=== PATIENT | female | born 1990 | race Two or more races ===

== ENCOUNTER 2020-09-24 09:50 | Emergency (ER) | payer OTHER ==
[2020-09-24 10:07] VITALS: BP 111/73; PULSE 88; TEMP 98.4; BMI 25.4
[2020-09-24 11:33] LABS: EPI CELLS >36 /uL (0-25.1); HYALINE CASTS 2 /uL (0-3.1); PH,URINE 5.5 (5.0-8.0); URINE APPEARANCE CLEAR; URINE BACTERIA 864 /uL (0-1359); URINE BILIRUBIN NEGATIVE (NEGATIVE); URINE COLOR YELLOW; URINE GLUCOSE (UA) NEGATIVE (NEGATIVE); URINE KETONE TRACE (NEGATIVE); URINE LEUK ESTERASE 1+ (NEGATIVE); URINE NITRITE NEGATIVE (NEGATIVE); URINE PROTEIN NEGATIVE (NEGATIVE); URINE RBC 11 /uL (0-23.9); URINE WBC 33 /uL (0-25.8)
== END 2020-09-24 12:52 | disposition home or self-care (01) ==
LOC: JER 09:50
DX: O20.0 Threatened abortion (principal)
CPT/HCPCS: 36415; 76817-TC; 81003; 84702; 86850; 86900; 86901; 87086; 99284-25

== ENCOUNTER 2020-10-01 06:58 | Emergency (ER) | payer OTHER ==
[2020-10-01 07:16] VITALS: BP 115/73; PULSE 90; TEMP 98.1; BMI 25.0
[2020-10-01] MEDS ORDERED: ACETAMINOPHEN 500 MG TABLET (FP) PO ONE (07:41)
[2020-10-01] MEDS ORDERED: ACETAMINOPHEN 325 MG TABLET (FP) ONE (08:45)
[2020-10-01 09:23] LABS: EPI CELLS >36 /uL (0-25.1); HYALINE CASTS 5 /uL (0-3.1); PH,URINE 5.5 (5.0-8.0); URINE APPEARANCE CLEAR; URINE BACTERIA 1787 /uL (0-1359); URINE BILIRUBIN NEGATIVE (NEGATIVE); URINE COLOR YELLOW; URINE GLUCOSE (UA) NEGATIVE (NEGATIVE); URINE KETONE NEGATIVE (NEGATIVE); URINE LEUK ESTERASE TRACE (NEGATIVE); URINE NITRITE NEGATIVE (NEGATIVE); URINE PROTEIN NEGATIVE (NEGATIVE); URINE RBC 8 /uL (0-23.9); URINE WBC 77 /uL (0-25.8)
[2020-10-01 10:01] LABS: BASO % 0.5 % (0-2.0); EOS % 2.8 % (0-4.5); HEMATOCRIT 39.9 % (32.4-45.2); HEMOGLOBIN 13.4 GM/dL (10.7-15.3); LYMPH % 27.2 % (8-40); MCH 28.9 pg (25.7-33.7); MCHC 33.5 g/dl (32.0-36.0); MEAN CELL VOLUME 86.3 fl (80-96); MEAN PLT VOLUME 7.3 fl (7.5-11.1); MONO % 6.5 % (3.8-10.2); PLATELET COUNT 324 10^3/uL (134-434); RBC 4.62 M/mm3 (3.60-5.2); RDW 15.6 % (11.6-15.6); WHITE BLOOD COUNT 8.6 K/mm3 (4.0-10.0)
== END 2020-10-01 11:39 | disposition home or self-care (01) ==
LOC: JER 06:58
DX: N30.00 Acute cystitis without hematuria (principal); Z3A.01 Less than 8 weeks gestation of pregnancy
CPT/HCPCS: 36415; 76817-TC; 81003; 84702; 85025; 87086; 87186; 87880; 99284-25

== ENCOUNTER 2021-05-26 02:15 | Inpatient (IN) | payer OTHER ==
[2021-05-26] MEDS ORDERED: AMPICILLIN - 2 GM in SODIUM CHLORIDE 100 ML IVPB ONE (04:00)
[2021-05-26] MEDS: ELECTROLYTE-148 SOLN 1,000 ML IV SCH ×3 (04:15→18:22)
[2021-05-26] MEDS ORDERED: AMPICILLIN SODIUM 2 GM VIAL ONE (04:17)
[2021-05-26 04:48] LABS: BASO % 0.2 % (0-2.0); EOS % 1.9 % (0-4.5); HEMATOCRIT 38.4 % (32.4-45.2); HEMOGLOBIN 13.1 GM/dL (10.7-15.3); LYMPH % 24.4 % (8-40); MCH 30.2 pg (25.7-33.7); MCHC 34.2 g/dl (32.0-36.0); MEAN CELL VOLUME 88.4 fl (80-96); MEAN PLT VOLUME 7.4 fl (7.5-11.1); MONO % 6.3 % (3.8-10.2); NEUT % 67.2 % (42.8-82.8); PLATELET COUNT 240 10^3/uL (134-434); RBC 4.34 M/mm3 (3.60-5.2); RDW 13.4 % (11.6-15.6); WHITE BLOOD COUNT 10.2 K/mm3 (4.0-10.0)
[2021-05-26 05:01] LABS: INR 0.91 (0.83-1.09); PROTHROMBIN TIME (PATIENT) 10.5 SEC (9.7-13.0)
[2021-05-26 05:03] LABS: ACTIVATED PTT 28.3 SECONDS (25.2-36.5)
[2021-05-26 05:06] VITALS: BMI 29.1
[2021-05-26 05:06] LABS: CALCIUM 8.7 mg/dL (8.5-10.1)
[2021-05-26 05:07] LABS: ALBUMIN 2.9 g/dl (3.4-5.0); BLOOD UREA NITROGEN 7.8 mg/dL (7-18)
[2021-05-26 05:10] LABS: CREATININE 0.6 mg/dL (0.55-1.3)
[2021-05-26 05:11] LABS: TOT PROT 7.1 g/dl (6.4-8.2)
[2021-05-26 05:12] LABS: BILIRUBIN,TOTAL 0.2 mg/dL (0.2-1)
[2021-05-26 05:36] LABS: SYPHILIS W/ RPR CONF NON-REACTIVE (NONREACTIVE)
[2021-05-26 06:05] LABS: HIV INTERPRETATION NEGATIVE (NEGATIVE)
[2021-05-26] MEDS ORDERED: BUTORPHANOL TARTRATE 1 MG/ML VIAL IVPB PRN (07:49)
[2021-05-26] MEDS ORDERED: DINOPROSTONE 10 MG VAGINAL SUPPOSITORY VG ONE (07:51)
[2021-05-26] MEDS ORDERED: ELECTROLYTE-148 SOLN 1,000 ML IV SCH (08:00)
[2021-05-26] MEDS ORDERED: AMPICILLIN SODIUM 1 GM VIAL ONE ×5 (08:10→23:58)
[2021-05-26] MEDS ORDERED: SODIUM CHLORIDE 100 ML IVPB ONE ×3 (08:11→14:52)
[2021-05-26] MEDS: AMPICILLIN - 1 GM in SODIUM CHLORIDE 100 ML IVPB SCH ×4 (08:16→20:00)
[2021-05-26] MEDS ORDERED: PROMETHAZINE HCL 25 MG/1 ML VIAL IVPUSH ONE (14:13)
[2021-05-26] MEDS ORDERED: OXYTOCIN 30 UNITS in 0.9% NS 30 UNIT/500 ML INFUS.BAG IVPB ONE (20:23)
[2021-05-26] MEDS: OXYTOCIN 30 UNITS in 0.9% NS 30 UNIT/500 ML INFUS.BAG IVPB SCH (20:30)
[2021-05-27] MEDS ORDERED: AMPICILLIN SODIUM 1 GM VIAL ONE ×3 (03:51→20:28)
[2021-05-27] MEDS: AMPICILLIN - 1 GM in SODIUM CHLORIDE 100 ML IVPB SCH ×4 (04:00→20:25)
[2021-05-27] MEDS ORDERED: BUTORPHANOL TARTRATE 2 MG/ML VIAL ONE (05:51)
[2021-05-27] MEDS ORDERED: PROMETHAZINE HCL 25 MG/1 ML VIAL ONE (05:51)
[2021-05-27] MEDS ORDERED: OXYTOCIN 30 UNITS in 0.9% NS 30 UNIT/500 ML INFUS.BAG IVPB ONE (10:02)
[2021-05-27] MEDS: OXYTOCIN 30 UNITS in 0.9% NS 30 UNIT/500 ML INFUS.BAG IVPB SCH (10:50)
[2021-05-27] MEDS: ELECTROLYTE-148 SOLN 1,000 ML IV SCH (12:21)
[2021-05-27] MEDS ORDERED: FENTANYL/BUPIVACAINE/NS/PF - PCEA - 50 ML DISP.SYRIN EP ONE (19:25)
[2021-05-27] MEDS ORDERED: BUPIVACAINE HCL/PF 0.25% (2.5MG/ML) 10 ML VIAL ONE (20:47)
[2021-05-27] MEDS ORDERED: LIDOCAINE HCL 1% PRESERVATIVE FREE - 30ML VIAL ONE (20:54)
[2021-05-27] MEDS: FENTANYL/BUPIVACAINE/NS/PF - PCEA - 50 ML DISP.SYRIN EP SCH (21:25)
[2021-05-27] MEDS ORDERED: NALOXONE HCL 0.4 MG/ML VIAL IVPUSH PRN (21:29)
[2021-05-28] MEDS ORDERED: OXYTOCIN 20 UNITS in 0.9% NS 20 UNIT/1,000 ML INFUS.BAG IV ONE (00:17)
[2021-05-28] MEDS ORDERED: METHYLERGONOVINE MALEATE 0.2 MG/1 ML AMP IM PRN (00:21)
[2021-05-28] MEDS ORDERED: BENZOCAINE 28 GM HEMORRHOIDAL OINTMENT TP PRN (00:21)
[2021-05-28] MEDS ORDERED: oxyCODONE HCL 5 MG TABLET PO PRN (00:21)
[2021-05-28] MEDS ORDERED: WITCH HAZEL 50% (TUCKS) 40 PAD/JAR PAD TP PRN (00:21)
[2021-05-28] MEDS ORDERED: BISACODYL 10 MG SUPP.RECT RC PRN (00:21)
[2021-05-28] MEDS ORDERED: ACETAMINOPHEN 325 MG TABLET (FP) PO PRN (00:21)
[2021-05-28] MEDS ORDERED: BENZOCAINE 20% 57 GM BOTTLE TP PRN (00:21)
[2021-05-28] MEDS ORDERED: OXYTOCIN 20 UNITS in 0.9% NS 20 UNIT/1,000 ML INFUS.BAG IV SCH (00:30)
[2021-05-28 01:46] LABS: CORD BASE EXCESS -0.4 mmol/L (0-2); CORD HCO3 24.3 mmHg (20-29); CORD PCO2 40.2 mmHg (30-78); CORD pH 7.399 (7.14-7.44)
[2021-05-28] MEDS: AMPICILLIN - 1 GM in SODIUM CHLORIDE 100 ML IVPB SCH (04:04)
[2021-05-28] MEDS: FERROUS SO4 325 MG TABLET (FP) PO SCH ×3 (08:21→17:28)
[2021-05-28] MEDS: IBUPROFEN 600 MG TABLET (FP) PO PRN ×2 (08:21→17:28)
[2021-05-28] MEDS: PRENATAL VITAMINS W/ FOLIC ACID TABLET (FP) PO SCH (09:07)
[2021-05-28] MEDS: FENTANYL/BUPIVACAINE/NS/PF - PCEA - 50 ML DISP.SYRIN EP SCH (22:41)
[2021-05-29 09:46] LABS: BASO % 0.4 % (0-2.0); HEMOGLOBIN 12.4 GM/dL (10.7-15.3); LYMPH % 25.2 % (8-40); MCH 29.7 pg (25.7-33.7); MCHC 33.4 g/dl (32.0-36.0); MEAN CELL VOLUME 89.1 fl (80-96); MEAN PLT VOLUME 7.6 fl (7.5-11.1); MONO % 4.8 % (3.8-10.2); NEUT % 67.6 % (42.8-82.8); PLATELET COUNT 246 10^3/uL (134-434); RBC 4.16 M/mm3 (3.60-5.2); RDW 14.2 % (11.6-15.6); WHITE BLOOD COUNT 9.2 K/mm3 (4.0-10.0)
[2021-05-29] MEDS: FERROUS SO4 325 MG TABLET (FP) PO SCH ×3 (09:48→17:10)
[2021-05-29] MEDS: PRENATAL VITAMINS W/ FOLIC ACID TABLET (FP) PO SCH (09:48)
[2021-05-29] MEDS: IBUPROFEN 600 MG TABLET (FP) PO PRN (17:09)
[2021-05-29] MEDS ORDERED: SENNOSIDES/DOCUSATE COMBO (SENNA PLUS) TABLET (UD) PO PRN (22:00)
[2021-05-29] MEDS: FENTANYL/BUPIVACAINE/NS/PF - PCEA - 50 ML DISP.SYRIN EP SCH (22:51)
[2021-05-30] MEDS: IBUPROFEN 600 MG TABLET (FP) PO PRN ×2 (04:21→09:49)
[2021-05-30] MEDS: PRENATAL VITAMINS W/ FOLIC ACID TABLET (FP) PO SCH (09:49)
[2021-05-30] MEDS: FERROUS SO4 325 MG TABLET (FP) PO SCH ×2 (09:50→13:47)
[2021-05-30 11:16] VITALS: BP 105/75; PULSE 75; TEMP 97.8
== END 2021-05-30 14:40 | disposition home or self-care (01) | DRG 560 ==
LOC: JDEL 02:15 → JLDR 03:50 → J3W 05-28 03:05
PROVIDERS: ADMIT Obstetrics & Gynecology; ATTEND Obstetrics & Gynecology
PROC: 3E0P7VZ Introduction of Hormone into Female Reproductive, Via Natural or Artificial Opening (ICD-10-PCS; 2021-05-26)
PROC: 10E0XZZ Delivery of Products of Conception, External Approach (ICD-10-PCS; principal; 2021-05-28)
DX: O41.93X1 Disorder of amniotic fluid and membranes, unspecified, third trimester, fetus 1 (principal); O69.81X0 Labor and delivery complicated by cord around neck, without compression, not applicable or unspecified; Z3A.38 38 weeks gestation of pregnancy; Z37.0 Single live birth
CPT/HCPCS: 36415; 36600; 59409; 80053; 82803; 85025; 85610; 85730; 86762; 86780; 86850; 86900; 86901; 87340; 87389; C9803; U0003; U0005

== ENCOUNTER 2023-03-03 11:47 | Emergency (ER) | payer OTHER ==
[2023-03-03 12:34] VITALS: BP 120/70; PULSE 70; RESP 18; TEMP 97.8; BMI 25.0
== END 2023-03-03 13:43 | disposition home or self-care (01) ==
LOC: JERFT 11:47 → JER 11:47 → JERFT 13:43
DX: Z20.818 Contact with and (suspected) exposure to other bacterial communicable diseases (principal); Z00.00 Encounter for general adult medical examination without abnormal findings
CPT/HCPCS: 99281-25

== ENCOUNTER 2024-01-14 13:07 | Emergency (ER) | payer OTHER ==
[2024-01-14 13:18] VITALS: BP 115/73; PULSE 80; RESP 18; TEMP 97.7; BMI 25.0
[2024-01-14] MEDS ORDERED: FAMOTIDINE 20 MG/50 ML IVPB 20 MG/50 ML MG IVPB ONE (14:36)
[2024-01-14] MEDS ORDERED: MAG HYDROX/AL HYDROX/SIMETH 30 ML UNIT-DOSE CUP ONE (14:36)
[2024-01-14] MEDS ORDERED: ACETAMINOPHEN INJECTION 100 ML ONE (14:36)
[2024-01-14] MEDS: FAMOTIDINE 20 MG/50 ML IVPB 20 MG/50 ML MG IVPB ONE (14:45)
[2024-01-14] MEDS: MAG HYDROX/AL HYDROX/SIMETH 30 ML UNIT-DOSE CUP PO ONE (14:45)
[2024-01-14] MEDS: ACETAMINOPHEN 1000 MG/100 ML BAG IVPB ONE (14:45)
[2024-01-14 15:04] LABS: BASO % 0.5 % (0-2.0); EOS % 5.1 % (0-4.5); HEMATOCRIT 37.5 % (32.4-45.2); HEMOGLOBIN 12.4 GM/dL (10.7-15.3); LYMPH % 41.3 % (8-40); MCH 28.5 pg (25.7-33.7); MCHC 33.1 g/dl (32.0-36.0); MONO % 6.3 % (3.8-10.2); NEUT % 46.8 % (42.8-82.8); PLATELET COUNT 302 10^3/uL (134-434); RBC 4.37 M/mm3 (3.60-5.2); RDW 14.1 % (11.6-15.6); WHITE BLOOD COUNT 6.7 K/mm3 (4.0-10.0)
[2024-01-14 15:07] LABS: EPI CELLS >36 /uL (0-25.1); HCG,QUALITATIVE URINE Negative; HYALINE CASTS 1 /uL (0-3.1); URINE APPEARANCE CLOUDY; URINE BACTERIA 1824 /uL (0-1359); URINE BILIRUBIN NEGATIVE (NEGATIVE); URINE COLOR YELLOW; URINE GLUCOSE (UA) NEGATIVE (NEGATIVE); URINE KETONE TRACE (NEGATIVE); URINE LEUK ESTERASE 2+ (NEGATIVE); URINE NITRITE NEGATIVE (NEGATIVE); URINE PROTEIN NEGATIVE (NEGATIVE); URINE RBC 36 /uL (0-23.9); URINE WBC 145 /uL (0-25.8)
[2024-01-14 15:47] LABS: POTASSIUM 4.1 mmol/L (3.5-5.1)
[2024-01-14 15:49] LABS: ALBUMIN 3.5 g/dl (3.4-5.0); BLOOD UREA NITROGEN 18.2 mg/dL (7-18); CALCIUM 8.9 mg/dL (8.5-10.1)
[2024-01-14 15:52] LABS: CREATININE 0.8 mg/dL (0.55-1.3)
[2024-01-14 15:54] LABS: BILIRUBIN,TOTAL 0.3 mg/dL (0.2-1); TOT PROT 7.3 g/dl (6.4-8.2)
[2024-01-14] MEDS ORDERED: SULFAMETHOXAZOLE/TRIMETHOPRIM 800MG/160MG D.S. TABLET ONE (16:00)
[2024-01-14] MEDS: SULFAMETHOXAZOLE/TRIMETHOPRIM 800MG/160MG D.S. TABLET PO ONE (16:04)
== END 2024-01-14 18:17 | disposition home or self-care (01) ==
LOC: JER 13:07
PROC: 3E033GC Introduction of Other Therapeutic Substance into Peripheral Vein, Percutaneous Approach (ICD-10-PCS; principal; 2024-01-14)
PROC: 3E033NZ Introduction of Analgesics, Hypnotics, Sedatives into Peripheral Vein, Percutaneous Approach (ICD-10-PCS; 2024-01-14)
DX: R10.32 Left lower quadrant pain (principal); N39.0 Urinary tract infection, site not specified
CPT/HCPCS: 36415; 76775-TC; 76830-TC; 80053; 81003; 84703; 85025; 86140; 87086; 99284-25; J0131